=== PATIENT | male | born 1990 | race African-American/Black ===

== ENCOUNTER 2016-11-13 15:16 | Emergency (ER) | payer OTHER ==
[~2016-11-13] VITALS: Ht 165.1 cm; Wt 74.8 kg
[~2016-11-13 15:16] MED LIST: CYCLOBENZAPRINE10 M1 PO; NAPROSYN500 M1 PO
--- NOTE | 2016-11-13 17:46 | ED NECK/BACK PAIN COMPLAINT ---
History of Present Illness General Chief Complaint: Upper Extremity Problem Stated Complaint: NECK AND LEFT SHOULDER PAIN XS 1 DAY Source: patient, old records Exam Limitations: no limitations Vital Signs & Intake/Output Vital Signs & Intake/Output Vital Signs Date Time Temp Pulse Resp B/P Pulse O2 O2 Flow FiO2 Ox Delivery Rate 11/13 1815 98.0 82 20 135/74 98 Room Air 11/13 1525 98.1 83 20 136/74 98 Room Air Allergies Coded Allergies: No Known Allergies (03/03/16) Reconcile Medications Cyclobenzaprine HCl 5 MG TABLET 1 TAB PO TIDPRN PRN pain Ibuprofen 800 MG TABLET 1 TAB PO TID pain Naproxen (Naprosyn) 500 MG TABLET 1 TAB PO BID PAIN Triage Note: PT TO ED C/O NECK PAIN SINCE SUNDAY. DENIES ANY OBVIOUS INJURY. DID NOT TAKE OTC MEDS. REFUSING MEDS IN TRIAGE. Triage Nurses Notes Reviewed? yes Onset: Abrupt Duration: day(s): (4), constant, waxing and waning Timing: recent history Quality/Severity: mild, aching Location: paraspinous muscles Radiation: buttocks Method of Injury: unknown Loss of Consciousness: no loss of consciousness Modifying Factors: movement, rest Associated Symptoms: denies HPI: This is a 26-year-old male with no medical history presents complaining of left- sided neck pain that he awoke with on Sunday. He denies any known injury or trauma or heavy lifting. He states the pain has been constant since and it is worse with range of motion to the left side. He denies any difficulty with range of motion otherwise he denies headache fever chills back pain. The pain is also reproducible with lifting his left shoulder. He denies any numbness tingling or weakness in his extremities no chest pain no shortness of breath. He is not taken anything for his symptoms were no modifying factors or associated symptoms otherwise pain is aching and constant (WINDY CHAU) Past History Travel History Traveled to [place] past 21 day No Medical History Any Pertinent Medical History? none Surgical History Surgical History: non-contributory Psychosocial History What is your primary language [place] Citizen Tobacco Use: Current Daily Use Daily Tobacco Use Amount/Type: => 5 Cigarettes daily ETOH Use: heavy use Illicit Drug Use: denies illicit drug use Family History Hx Contributory? No (WINDY CHAU) Review of Systems Review of Systems Constitutional: Reports: see HPI. All Other Systems: Reviewed and Negative Comments Review of systems: See HPI, All other systems negative. Constitutional, no chills no fever, no malaise HEENT: No visual changes no sore throat no congestion, no ear pain Cardiovascular: No chest pain , no palpitation , Skin, no rashes, no change in skin Respiratory: No dyspnea no cough no sputum GI: No nausea no vomiting, no diarrhea, no bloating/constipation : No dysuria No hematuria, no frequency, no discharge Muscle skeletal: No joint pain, no joint swelling, no back pain, neck pain, Neurologic: No numbness no confusion, no headache Psych: No stress Heme/endocrine: No bruising no bleeding IMMUNO: No lymphadenopathy (WINDY CHAU) Physical Exam Physical Exam General Appearance: well developed/nourished, alert, awake Neck: normal inspection, supple, muscle spasm, paraspinous muscle tender Comments: Well-developed well-nourished patient in no apparent distress. HEENT: Atraumatic, extraocular motion intact Neck: Supple, limited range of motion to the left side secondary to pain, there is no midline tenderness there is left-sided paracervical tenderness palpation Back: FROM, Nontender Cardiovascular: Regular rate and rhythms no murmurs rubs or gallops, Respiratory: Chest nontender.There were no bony deformities, no asymmetry. No respiratory distress. Patient speaking in full complete sentences. Breath sounds clear to auscultation bilaterally: NO W/R/R Shoulder: Atraumatic/Stable. FROM . Elbow: Atraumatic/stable. FROM. No laxity Upper arm/Forearm: Atraumatic. Nontender. No edema, 5 out of 5 photography colorist strength noted to bilateral upper extremities Hand/Wrist: Atraumatic/stable. Skin intact. FROM Pulses: Normal/equal radial pulses bilaterally. Brisk cap refill Lower Extremities: full range of motion Neuro: Alert and oriented x3 Skin: Warm & dry;No appreciable rash on exposed skin Psych: Mood affect normal, normal memory normal judgment. (WINDY CHAU) Progress Differential Diagnosis: C spine injury, carotid dissection, herniated disc, myofascial strain, pyelo/UTI Plan of Care: Current Medications Sig/Hans Start time Last Medication Dose Stop Time Status Admin Ibuprofen 800 MG ONCE ONE 11/13 1800 AC (Motrin) 11/13 1801 Pain is reproducible in the paracervical muscles there is been no recent trauma or injury is no numbness tingling or weakness in the upper extremities no chest pain imaging was deferred which patient is agreement with the awoke with the symptoms he has not taken anything for his symptoms. He is medicated ibuprofen 800 mg here in the department prescription primary profane and Flexeril was provided answered all his questions he feels comfortable with this plan (WINDY CHAU) Departure Departure Time of Disposition: 1751 Disposition: HOME OR SELF CARE Condition: Stable Clinical Impression Primary Impression: Cervical strain Referrals: PATIENT HAS NO PRIMARY CARE DR (PCP/Family) Additional Instructions: rest, heating pads as discussed. ibuprofen 800mg every 8 hours, flexeril as directed- this may make you drowsy. follow upw ith your pmd, these prescriptions were sent to your pharmacy Departure Forms: Customer Survey General Discharge Information Prescriptions: Current Visit Scripts Ibuprofen 1 TAB PO TID #30 TAB Cyclobenzaprine HCl 1 TAB PO TIDPRN PRN pain #12 TAB (WINDY CHAU) PA/DUPLICATE MAKER Co-Sign Statement Statement: ED Attending supervision documentation- [] I saw and evaluated the patient. I have also reviewed all the pertinent lab results and diagnostic results. I agree with the findings and the plan of care as documented in the PA's/DUPLICATE MAKER's documentation. [X] I have reviewed the ED Record and agree with the PA's/DUPLICATE MAKER's documentation. [] Additions or exceptions (if any) to the PAs/DUPLICATE MAKER's note and plan are summarized below: [] (EMILY RIVERO,MARLEE)
[2016-11-13] MEDS ORDERED: CYCLOBENZAPRINE5 M2 PO (17:53)
[2016-11-13] MEDS ORDERED: IBUPROFEN800 M1 PO (17:53)
[2016-11-13 18:15] VITALS: BP 135/74
== END 2016-11-13 18:16 ==
LOC: ERH 15:16
DX: S16.1XXA Strain of muscle, fascia and tendon at neck level, initial encounter (principal)

== ENCOUNTER 2017-01-28 21:15 | Emergency (ER) | payer OTHER ==
[~2017-01-28] VITALS: Ht 167.6 cm; Wt 74.8 kg
[~2017-01-28 21:15] MED LIST changes: +CYCLOBENZAPRINE5 M2 PO; +IBUPROFEN800 M1 PO
[2017-01-28 21:50] VITALS: BP 123/77
--- NOTE | 2017-01-28 22:34 | ED UPPER/LOWER EXTREMITY COMPL ---
History of Present Illness General Chief Complaint: Lower Extremity Injury Stated Complaint: R KNEE INJURY THIS AM Source: patient Exam Limitations: no limitations Vital Signs & Intake/Output Vital Signs & Intake/Output Vital Signs Date Time Temp Pulse Resp B/P B/P Pulse O2 O2 Flow FiO2 Mean Ox Delivery Rate 01/28 2150 97.5 62 20 123/77 98 Room Air ED Intake and Output 01/29 0000 01/28 1200 Intake Total Output Total Balance Patient 165 lb Weight Weight Reported by Patient Measurement Method Allergies Coded Allergies: No Known Allergies (01/28/17) Reconcile Medications Cyclobenzaprine HCl 5 MG TABLET 1 TAB PO TIDPRN PRN pain Ibuprofen 800 MG TABLET 1 TAB PO TID pain Ketorolac Tromethamine 10 MG TABLET 1 TAB PO TID PRN PAIN RECEIVED IM IN ER Naproxen (Naprosyn) 500 MG TABLET 1 TAB PO BID PAIN Triage Note: TRIAGE: PT TO ER C/C PAIN TO R KNEE, ONSET THIS MORNING, CONSTANT SINCE ONSET. STARTED WHEN PLAYING SOCCER THIS MORNING. HAS KNEE BRACE ON. MEDICATED WITH TYLENOL PER PATIENT REQUEST. Triage Nurses Notes Reviewed? yes Onset: Abrupt Duration: constant Timing: single episode today Severity: severe Severity Numbers: 8 Method of Injury: sports injury HPI: Patient is a 26-year-old male who presents emergency him today stating while playing soccer he kicked the ball same time as another player resulting acute onset of sharp stabbing severe right medial joint line knee pain. Patient states that ambulation and bending knee makes worse. Patient hasn't taken any medications for symptoms. Denies any significant injury or surgeries to the right knee (WINDY BEGUM) Past History Travel History Traveled to [place] past 21 day No Medical History Any Pertinent Medical History? none Neurological: NONE EENT: NONE Cardiovascular: NONE Respiratory: NONE Gastrointestinal: NONE Hepatic: NONE Renal: NONE Musculoskeletal: NONE Psychiatric: NONE Endocrine: NONE Blood Disorders: NONE Cancer(s): NONE MED SPEC/Reproductive: NONE Surgical History Surgical History: non-contributory Psychosocial History What is your primary language German Tobacco Use: Current Daily Use Daily Tobacco Use Amount/Type: => 5 Cigarettes daily ETOH Use: occasional use Illicit Drug Use: denies illicit drug use Family History Hx Contributory? No (WINDY BEGUM) Review of Systems Review of Systems Constitutional: Reports: no symptoms. EENTM: Reports: no symptoms. Respiratory: Reports: no symptoms. Cardiovascular: Reports: no symptoms. Gastrointestinal/Abdominal: Reports: no symptoms. Genitourinary: Reports: no symptoms. Musculoskeletal: Reports: see HPI, joint pain, joint swelling. Skin: Reports: no symptoms. Neurological/Psychological: Reports: no symptoms. Hematologic/Endocrine: Reports: no symptoms. Immunological: Reports: no symptoms. All Other Systems: Reviewed and Negative (WINDY BEGUM) Physical Exam Physical Exam General Appearance: no apparent distress, alert, comfortable Neurologic/Tendon: normal sensation, normal motor functions, normal tendon functions, responds to pain, no evidence tendon injury Skin: intact, normal color, warm/dry Comments: Well-developed well-nourished no apparent distress. HEENT: Atraumatic, extraocular motion intact Neck: Supple, no lymphadenopathy Back: Nontender Respiratory: No respiratory distress Extremities: Right knee mild generalized swelling severe point tenderness to medial joint line Valgus stress test positive laxity and pain Negative anterior drawer test negative posterior drawer test negative varus stress test Neuro: Alert and oriented x3 Psych: Mood affect normal, normal memory normal judgment. (WINDY BEGUM) Progress Differential Diagnosis: arterial insufficiency, compartment syndrome, contusion, dislocation, DVT, fracture, gout, septic arthritis, sprain, tendon injury Plan of Care: Current Medications Sig/Hans Start time Last Medication Dose Stop Time Status Admin Ketorolac 30 MG ONCE ONE 01/280 UNVr Tromethamine 01/28 230 (Toradol) No osseous injury noted to right knee. due to history of present ILLNESS AND exam finding PT HAS concerns of right MCL sprain. Meng wrap knee immobilizer was placed. Post neurovascular was intact. Crutches were administered for weightbearing as tolerated. (WINDY BEGUM) Diagnostic Imaging: Viewed by Me: Radiology Read. Radiology Impression: no acute abnormality, no fracture Comments: PATIENT: MARIA DEL CARMEN HARRELL PRESENT AGE: 26 PATIENT ACCOUNT NO: [id number] : 89 LOCATION: [facility] ORDERING PHYSICIAN: WINDY DIEZ SERVICE DATE: 01/28/17 EXAM TYPE: RAD - XRY-KNEE COMPLETE RIGHT EXAMINATION: XR KNEE, RIGHT CLINICAL INFORMATION: Right knee pain following a soccer injury. Evaluate for a fracture. COMPARISON: No relevant prior studies are available for comparison. TECHNIQUE: AP, bilateral oblique, and lateral views of the right knee were obtained. FINDINGS: Bones and soft tissues are normal. No fracture or joint effusion. Alignment is anatomic. Joint spaces are well maintained. No abnormal soft tissue calcification. IMPRESSION: Normal radiographic examination of the right knee. DICTATED BY: RUTH BENAVIDEZ MD DATE/TIME DICTATED:01/28/172221 (WINDY BEGUM) Departure Departure Disposition: HOME OR SELF CARE Condition: Stable Clinical Impression Primary Impression: Right knee pain Secondary Impressions: Sprain of medial collateral ligament of right knee Referrals: BINTA RIVERO,CRISTINE (PCP/Family) BUCK RIVERO,KEEGAN Additional Instructions: As discussed begin icing the area directly 20 minutes every 2 hours. Begin using the knee brace and Meng wrap for pain and swelling and begin using the crutches UNTIL YOU CAN walk without pain. If no better in one week follow-up with orthopedic Keegan Mota MD. If symptoms worsen return to emergency room. Prescriptions waiting AT [facility] pharmacy. Departure Forms: Customer Survey General Discharge Information Prescriptions: Current Visit Scripts Ketorolac Tromethamine 1 TAB PO TID PRN PAIN #20 TAB RECEIVED IM IN ER (WINDY BEGUM) PA/DEPARTMENT SUPERVISOR Co-Sign Statement Statement: ED Attending supervision documentation- [] I saw and evaluated the patient. I have also reviewed all the pertinent lab results and diagnostic results. I agree with the findings and the plan of care as documented in the PA's/DEPARTMENT SUPERVISOR's documentation. [x] I have reviewed the ED Record and agree with the PA's/DEPARTMENT SUPERVISOR's documentation. [] Additions or exceptions (if any) to the PAs/DEPARTMENT SUPERVISOR's note and plan are summarized below: [] (GOMEZ RIVERO,ANAND Trejo)
[2017-01-28] MEDS ORDERED: KETOROLAC TROME10 M1 PO (22:45)
== END 2017-01-28 23:04 ==
LOC: ERH 21:15
DX: S83.411A Sprain of medial collateral ligament of right knee, initial encounter (principal); W21.9XXA Striking against or struck by unspecified sports equipment, initial encounter; Y93.66 Activity, soccer; Y92.322 Soccer field as the place of occurrence of the external cause
CPT/HCPCS: 73562-RT; J1885

== ENCOUNTER 2018-06-21 15:47 | Emergency (ER) | payer OTHER ==
[~2018-06-21] VITALS: Ht 165.1 cm; Wt 77.1 kg
[~2018-06-21 15:47] MED LIST changes: +KETOROLAC TROME10 M1 PO
[2018-06-21 15:49] VITALS: BP 130/80
[2018-06-21] MEDS ORDERED: NAPROSYN500 M1 PO (15:58)
[2018-06-21] MEDS ORDERED: CYCLOBENZAPRINE10 M1 PO (15:58)
[2018-06-21] MEDS ORDERED: LIDODERM1 EACH TOP (15:58)
--- NOTE | 2018-06-21 16:01 | ED GENERAL ADULT ---
History of Present Illness General Chief Complaint: Neck/Upper Back Pain/Injury Stated Complaint: NECK PAIN, NO KNOWN INJURY PER PT Source: patient Exam Limitations: no limitations Vital Signs & Intake/Output Vital Signs & Intake/Output Vital Signs Date Time Temp Pulse Resp B/P B/P Pulse O2 O2 Flow FiO2 Mean Ox Delivery Rate 06/21 1549 96.8 74 18 130/80 96 Room Air ED Intake and Output 06/22 0000 06/21 1200 Intake Total Output Total Balance Patient 170 lb Weight Weight Reported by Patient Measurement Method Allergies Coded Allergies: No Known Allergies (01/28/17) Reconcile Medications Cyclobenzaprine HCl 5 MG TABLET 1 TAB PO TIDPRN PRN pain Cyclobenzaprine HCl 10 MG TABLET 1 TAB PO Q6 PRN pain Ibuprofen 800 MG TABLET 1 TAB PO TID pain Ketorolac Tromethamine 10 MG TABLET 1 TAB PO TID PRN PAIN RECEIVED IM IN ER Lidocaine (Lidoderm) 5 % ADH..PATCH 1 PAT TOP DAILY PRN pain may wear up to 12 hours Naproxen (Naprosyn) 500 MG TABLET 1 TAB PO BID PAIN Naproxen (Naprosyn) 500 MG TABLET 1 TAB PO BID PRN pain Triage Note: 27 Y/O MALE C/O L SIDED NECK PAIN SINCE THIS AM. DENIES INJURY OR TRAUMA STATING PAIN STARTED WHILE DRIVING THIS AM. DENIES PAIN WITH PALPATION STATING PAIN IS WORSE WITH LIFTING ARM OR TURNING HEAD. PT REPORTS HX OF SAME, SINCE AGE OF 4 OR 5. EVAL'D BY CHARY JAMES IN TRIAGE Triage Nurses Notes Reviewed? yes Onset: Gradual Duration: hour(s): Timing: constant HPI: 27-year-old otherwise healthy male presenting with gradual onset of left-sided neck pain since this morning. Patient reports that he was driving to work when he began to feel like his neck was getting sore. States that the pain is worse with movement. Has had recurrent issues with left-sided muscle strain throughout his life since the age of 4 or 5. Has been seen in the emergency department multiple times for the same and is usually given NSAIDs. He is unsure if these medications have helped in the past. He has not tried anything currently for pain relief. Denies chest pain, shortness of breath. There is no numbness or paresthesias to the upper extremities. Denies any known trauma or strenuous activity. (Meghann Light) Past History Travel History Traveled to [place] past 21 day No Medical History Any Pertinent Medical History? 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 No (Meghann Light) Review of Systems Review of Systems Constitutional: Reports: no symptoms. EENTM: Reports: no symptoms. Respiratory: Reports: no symptoms. Cardiovascular: Reports: no symptoms. GI: Reports: no symptoms. Genitourinary: Reports: no symptoms. Musculoskeletal: Reports: see HPI. Skin: Reports: no symptoms. Neurological/Psychological: Reports: no symptoms. Hematologic/Endocrine: Reports: no symptoms. Immunologic/Allergic: Reports: no symptoms. All Other Systems: Reviewed and Negative (Meghann Light) Physical Exam Physical Exam General Appearance: well developed/nourished, no apparent distress, alert, awake Comments: Gen.: Well-nourished, well-developed, no acute distress. Head: Normocephalic, atraumatic. Eyes: Normal inspection bilaterally Ears: Normal inspection bilaterally Nose: Normal inspection Neck: Normal inspection, tender to palpation over the left lateral cervical muscles, no midline tenderness to palpation, unrestricted C-spine range of motion Lungs: clear to auscultation bilaterally, normnal breath sounds Heart: regular rate and rhythm Abdomen: soft and non-tender Extremities: Normal inspection, bilateral upper extremities are neurovascularly intact Neurologic: alert and oriented x3, steady gait Skin: warm and dry Psychiatric: Normal mood and affect, no apparent delusions or hallucinations, behavior appropriate Core Measures ACS in differential dx? No CVA/TIA Diagnosis: No Sepsis Present: No Sepsis Focused Exam Completed? No (Meghann Light) Progress Differential Diagnoses I considered the following diagnoses in my evaluation of the patient: [Cervical strain versus cervical sprain, low concern for cervical radiculopathy versus vertebral fracture versus ACS] Plan of Care: Patient given Rx naproxen, Lidoderm patches, and Flexeril. Counseled on supportive care with warm compresses and gentle stretching. He has an appointment with his primary care doctor tomorrow for evaluation and was instructed to follow-up then for a recheck. He was also given follow-up with orthopedics given his recurrent muscle strain. Given strict return precautions. Initial ED EKG: none (Meghann Light) Departure Departure Disposition: HOME OR SELF CARE Condition: Stable Clinical Impression Primary Impression: Cervical strain Referrals: Heber RIVERO,Candie Buck MD,Kailee (PCP/Family) Additional Instructions: Use naproxen, Flexeril, and Lidoderm patches as needed for pain. Follow-up with your primary care provider and orthopedics for reevaluation. Return to the emergency department for any new or worsening symptoms. Departure Forms: Customer Survey General Discharge Information Prescriptions: Current Visit Scripts Naproxen (Naprosyn) 1 TAB PO BID PRN pain #60 TAB Cyclobenzaprine HCl 1 TAB PO Q6 PRN pain #30 TAB Lidocaine (Lidoderm) 1 PAT TOP DAILY PRN pain #30 PAT may wear up to 12 hours (Meghann Light) PA/PATRIOT MISSILE AIR DEFENSE ARTILLERY Co-Sign Statement Statement: ED Attending supervision documentation- I saw and evaluated the patient. I have also reviewed all the pertinent lab results and diagnostic results. I agree with the findings and the plan of care as documented in the PA's/PATRIOT MISSILE [employer] DEFENSE ARTILLERY's documentation. x I have reviewed the ED Record and agree with the PA's/PATRIOT MISSILE [employer] DEF[employer] ARTILLERY's documentation. [] Additions or exceptions (if any) to the PAs/PATRIOT MISSILE AIR DEFENSE ARTILLERY's note and plan are summarized below: [] (Paulie RIVERO,Grupo) Critical Care Note Critical Care Note Critical Care Time: non-applicable (Meghann Light)
== END 2018-06-21 16:07 ==
LOC: ERH 15:47
DX: S16.1XXA Strain of muscle, fascia and tendon at neck level, initial encounter (principal); Z87.891 Personal history of nicotine dependence